=== PATIENT | male | born 1970 | race Caucasian/White ===

== ENCOUNTER 2017-03-23 21:23 | Emergency (ER) | payer OTHER ==
[~2017-03-23] VITALS: Ht 172.7 cm; Wt 98.0 kg
[2017-03-23 22:04] VITALS: Ht 172.7 cm; Wt 98.0 kg
[2017-03-24 01:09] LABS: CALCIUM 8.8 mg/dL (8.5-10.1); CARBON DIOXIDE 24.6 mmol/L (21-32); CHLORIDE SERUM 103 mmol/L (98-107); CREATININE SERUM 1.1 mg/dL (0.7-1.3); GFR1 > 60 mL/min; GLUCOSE SERUM 129 mg/dL (74-106); POTASSIUM SERUM 3.5 mmol/L (3.5-5.1); SODIUM SERUM 140 mmol/L (136-145)
[2017-03-24 01:19] LABS: BASOPHIL % 0.7 % (0-2); PLATELET COUNT 310 x10^3mcL (130-400); RED CELL DISTRIBUTION WIDTH 13.1 % (11.5-14.5)
[2017-03-24 01:21] LABS: ALKALINE PHOSPHATASE 131 U/L (46-116); ALT/SGPT 47 U/L (16-63); AST/SGOT 28 U/L (15-37); BILIRUBIN TOTAL 0.4 mg/dL (0.20-1.00); FREE T4 0.96 ng/dL (0.76-1.46); TOTAL PROTEIN, SERUM 7.9 g/dL (6.4-8.2)
[2017-03-24 02:19] LABS: AMPHETAMINE QUAL UR NONE DETECTED (NEG <=1000)
[2017-03-24 04:48] VITALS: BP 127/79
== END 2017-03-24 04:48 | disposition home or self-care (01) ==
LOC: ED 21:23
PROVIDERS: Emergency Medicine
DX: M54.9 Dorsalgia, unspecified (principal); R07.9 Chest pain, unspecified; I10 Essential (primary) hypertension
CPT/HCPCS: 36415; 83880; 84439; 85378; 87804; J1885

== ENCOUNTER 2017-07-12 07:05 | Emergency (ER) | payer OTHER ==
[~2017-07-12] VITALS: Ht 172.7 cm; Wt 100.5 kg
[2017-07-12 07:10] VITALS: Ht 172.7 cm; Wt 100.5 kg
[2017-07-12 08:04] LABS: BASOPHIL % 1.7 % (0-2); PLATELET COUNT 238 x10^3mcL (130-400); RED CELL DISTRIBUTION WIDTH 13.9 % (11.5-14.5)
[2017-07-12 08:08] LABS: CALCIUM 8.8 mg/dL (8.5-10.1); CARBON DIOXIDE 24.9 mmol/L (21-32); CHLORIDE SERUM 104 mmol/L (98-107); CREATININE SERUM 0.9 mg/dL (0.7-1.3); GFR1 > 60 mL/min; GLUCOSE SERUM 112 mg/dL (74-106); POTASSIUM SERUM 3.1 mmol/L (3.5-5.1); SODIUM SERUM 138 mmol/L (136-145)
[2017-07-12 08:12] LABS: ALBUMIN 3.8 g/dL (3.4-5.0); ALKALINE PHOSPHATASE 125 U/L (46-116); ALT/SGPT 43 U/L (16-63); AST/SGOT 25 U/L (15-37); BILIRUBIN TOTAL 0.6 mg/dL (0.20-1.00); TOTAL PROTEIN, SERUM 7.6 g/dL (6.4-8.2)
[2017-07-12 11:30] VITALS: BP 126/77
== END 2017-07-12 11:30 | disposition home or self-care (01) ==
LOC: ED 07:05
PROVIDERS: Specialist
DX: M94.0 Chondrocostal junction syndrome [Tietze] (principal); I10 Essential (primary) hypertension
CPT/HCPCS: 36415; 83880; J1885; Q0092

== ENCOUNTER 2017-09-10 09:21 | Emergency (ER) | payer OTHER ==
[~2017-09-10] VITALS: Ht 172.7 cm; Wt 99.3 kg
[2017-09-10 09:27] VITALS: Ht 172.7 cm; Wt 99.3 kg
[2017-09-10 11:26] VITALS: BP 95/61
== END 2017-09-10 11:26 | disposition home or self-care (01) ==
LOC: ED 09:21
DX: J98.01 Acute bronchospasm (principal); R19.7 Diarrhea, unspecified; I10 Essential (primary) hypertension; F17.210 Nicotine dependence, cigarettes, uncomplicated
CPT/HCPCS: 99406; J2930; J7613; J7644

== ENCOUNTER 2018-01-25 13:10 | Emergency (ER) | payer OTHER ==
[~2018-01-25] VITALS: Ht 167.6 cm; Wt 93.0 kg
[2018-01-25 13:15] VITALS: Ht 167.6 cm; Wt 93.0 kg
[2018-01-25 14:49] VITALS: BP 138/82
== END 2018-01-25 14:49 | disposition home or self-care (01) ==
LOC: ED 13:10
DX: L02.31 Cutaneous abscess of buttock (principal); I10 Essential (primary) hypertension
CPT/HCPCS: 82962; J2001

== ENCOUNTER 2018-01-27 14:44 | Emergency (ER) | payer OTHER ==
[~2018-01-27] VITALS: Ht 172.7 cm; Wt 93.9 kg
[2018-01-27 14:55] VITALS: Ht 172.7 cm; Wt 93.9 kg
[2018-01-27 17:18] VITALS: BP 116/76
== END 2018-01-27 17:18 | disposition home or self-care (01) ==
LOC: ED 14:44
DX: L02.31 Cutaneous abscess of buttock (principal)

== ENCOUNTER 2018-11-06 20:31 | Emergency (ER) | payer OTHER ==
[~2018-11-06] VITALS: Ht 172.7 cm; Wt 109.3 kg
[2018-11-06 20:54] VITALS: Ht 172.7 cm; Wt 109.3 kg
[2018-11-06 22:53] VITALS: BP 139/76
== END 2018-11-06 22:53 | disposition home or self-care (01) ==
LOC: ED 20:31
DX: L02.512 Cutaneous abscess of left hand (principal); L03.114 Cellulitis of left upper limb; I10 Essential (primary) hypertension; Z98.890 Other specified postprocedural states